=== PATIENT | female | born 1965 | race Caucasian/White ===

== ENCOUNTER → 2018-03-18 07:29 | Outpatient (CLI) | payer OTHER, SELFPAY ==
--- NOTE | 2018-03-18 07:30 | NM_ITS ---
SPECT MYOCARDIAL PERFUSION SCAN, REST AND STRESS: EXERCISE STRESS: [facility] REVIEW QGS EF AND WALL MOTION EVALUATION: QPS - PERFUSION EVALUATION: HISTORY: Chest pain, Fatigue, Abnormal EKG, HTN, Tobacco use PROCEDURE: Rest imaging performed after administration of10.26 millicuries Tc MIBI. Dose administered at7:45 a.m., with imaging thereafter. Stress imaging was then performed following9 minutes of exercise stress. The patient achieved a heart [id number] with projected heart rate of142 . Resting BP157/90 with stress 210/90. At maximum exercise stress,31.6 millicuries Tc MIBI administered at9:00 a.m. with trbaops44 minutes thereafter. FINDINGS: Perfusion Evaluation: The single slice spect images as well as the [facility] bull's-eye data summary were reviewed. Wall Motion and Ejection Fraction Evaluation: Gated SPECT review and analysis used to evaluate these features. There is a 73 % left ventricular ejection fraction. There seems to be good wall motion Uniform myocardial activity through stress and rest IMPRESSION: No scintigraphic evidence of exercise-induced myocardial ischemia. Normal ejection fraction normal wall motion
--- NOTE | 2018-03-18 08:00 | HMH.ITSHM ---
HCTZ LEVOTHYROXINE ESTRADIOL
== END ==
PROVIDERS: Family Provider Family Medicine; PCP Family Medicine; Visit Provider Physician Assistant
DX: R07.9 Chest pain, unspecified (principal)
CPT/HCPCS: 78452; 93017; A9502

== ENCOUNTER → 2018-05-09 07:59 | Outpatient (CLI) | payer OTHER, SELFPAY ==
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
== END ==
PROVIDERS: Family Provider Family Medicine; PCP Family Medicine; Visit Provider Family Medicine
DX: R91.1 Solitary pulmonary nodule (principal)
CPT/HCPCS: 71250

== ENCOUNTER → 2018-11-18 14:27 | Outpatient (CLI) | payer OTHER, SELFPAY ==
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
== END ==
PROVIDERS: PCP Family Medicine; Visit Provider Family Medicine
DX: Z09 Encounter for follow-up examination after completed treatment for conditions other than malignant neoplasm (principal)
CPT/HCPCS: 71250

== ENCOUNTER → 2020-02-09 12:01 | Outpatient (CLI) | payer OTHER, SELFPAY ==
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
--- NOTE | 2020-02-09 12:20 | CA_ITS ---
APPROVED REPORT EXAM: Comprehensive 2D, Doppler, and color-flow Echocardiogram Operations And Maintenance Supervisor: Rupali Liu RVT Ht: 5 ft 5 in Wt: 180lbs BSA: 1.89 BP: 136/65 mmHg Indications: Chest Pain, Shortness of Breath, Hypertension,Edema, Smoker 2D Dimensions LVOT 2.24 cm (M/F) 1.5-2.5 M-Mode Dimensions RVDd 3.31 cm (0.9-2.6) LVDd 3.75 cm (3.5-5.7) LVDs 2.58 cm (3.5-5.7) IVSd 0.97 cm (0.6-1.1) PWd 0.60 cm (0.6-1.1) EF (Teich) 59.80% FS 31.20% EDV (Teich) 60.00 mL ESV (Teich) 24.10 mL LV Diastology E/A Ratio 0.64 Mitral Valve MV A Velocity 70.00 (40-130 cm/s) Left Ventricle Left atrium is mildly enlarged, left ventricle is normal size, mild concentric left ventricular hypertrophy, hyperdynamic left ventricular systolic function, visually estimated ejection fraction over 65% with no regional wall motion abnormality, grade 1 diastolic dysfunction seen without tissue Doppler evidence of raise left atrial pressure. Right Ventricle Right atrium and right ventricular normal size and contractility. Aortic Valve Aortic valve is grossly normal, there is no aortic stenosis or aortic insufficiency. Mitral Valve Mitral valve is grossly normal, there is mild mitral regurgitation. Tricuspid Valve Tricuspid valve grossly normal, there is mild tricuspid regurgitation, tricuspid regurgitation jet velocity is inadequate for calculation of the right ventricular systolic pressure. Pulmonic Valve Pulmonic valve is poorly visualized. Great Vessels Aortic root is normal size. Pericardium No significant pericardial effusion noted. Conclusion 1. Mildly enlarged left atrium, normal left ventricular size, mild concentric left ventricular hypertrophy, hyperdynamic left ventricular systolic function, visually estimated ejection fraction over 65% with no regional wall motion abnormality, grade 1 diastolic dysfunction seen without tissue Doppler evidence of raise left atrial pressure. 2. Mild mitral and tricuspid regurgitation. 3. No significant pericardial effusion noted. Electronically signed by : Avery Herndon, 02/09/2020 17:46:27
--- NOTE | 2020-02-09 12:21 | CA_ITS ---
APPROVED REPORT Legal File Clerk: Rupali Liu RVT Laterality: Bilateral Study Quality: Good Indications: Dizziness and Vertigo Risk Factors Hypertension: Smoking Doppler Spectral Velocity Analysis ECA (R) 119.50/28.10 cm/s ECA (L) 71.30/19.70 cm/s dICA (R) 75.10/31.80 cm/s dICA (L) 52.80/24.80 cm/s Taylor (R) 76.10/33.40 cm/s Taylor (L) 70.00/29.90 cm/s pICA (R) 103.00/27.40 cm/s pICA (L) 96.10/32.50 cm/s dCCA (R) 90.10/25.20 cm/s dCCA (L) 78.30/24.20 cm/s pCCA (R) 106.90/28.50 cm/s pCCA (L) 111.40/31.20 cm/s Vert (R) 32.70/11.00 cm/s Vert (L) 43.80/12.80 cm/s ICA/CCA 1.14 ICA/CCA 1.23 Findings Study suggests less than 20% stenosis of the right internal cartoid artery. Study suggests less than 20% stenosis of the left internal cartoid artery. Antegrade flow seen bilateral vertebral arteries. Conclusion Study suggests less than 20% stenosis of the right internal cartoid artery. Study suggests less than 20% stenosis of the left internal cartoid artery. Antegrade flow seen bilateral vertebral arteries. Electronically signed by : Hieu Wakefield, 02/09/2020 19:12:13
[2020-02-09 13:36] LABS: Basophils # 0.1 K/mm3 (0-0.2); Basophils % 0.8 % (0.1-2.0); Eosinophils # 0.1 K/mm3 (0.0-0.4); Eosinophils % 2.1 % (0.1-12.0); Hematocrit 47.8 % (37.0-47.0); Hemoglobin 15.8 g/dL (12.2-16.2); Lymphocytes # 2.1 K/mm3 (0.7-4.5); Lymphocytes % 32.1 % (10-50); Mean Corpuscular Hemoglobin 30.1 pg (27.0-31.2); Mean Corpuscular Volume 91.1 fl (81-99); Mean Platelet Volume 7.4 fl (7.4-10.4); Monocytes # 0.3 K/mm3 (0.1-1.0); Monocytes % 4.9 % (1.7-9.3); Neutrophils # 3.8 K/mm3 (1.8-7.8); Neutrophils % 60.1 % (37.0-80.0); Platelet Count 302 K/mm3 (142-424); Red Blood Count 5.25 M/mm3 (4.20-5.40); Red Cell Distribution Width 12.6 % (11.5-17.5); White Blood Count 6.4 K/mm3 (4.8-10.8)
[2020-02-09 14:15] LABS: Hemoglobin A1C 5.4 % (4.0-6.0)
[2020-02-09 14:55] LABS: Alanine Aminotransferase 34 U/L (12-78); Albumin Level 4.1 g/dl (3.5-5.0); Albumin/Globulin Ratio 1.4 (1.1-1.8); Alkaline Phosphatase 96 U/L (38-126); Anion Gap 10.3 mEq/L (5-15); Aspartate Amino Transferase 28 U/L (14-36); Blood Urea Nitrogen 19 mg/dl (7-17); Calcium 9.4 mg/dl (8.4-10.2); Carbon Dioxide 32 mmol/L (22.0-30.0); Chloride 100 mmol/L (98-107); Chol/HDL Ratio 4.3 (1-3.5); Cholesterol 173 mg/dl (140-200); Estimated Glomerular Filt Rate 74 ml/min (>60); GFR (African American) 90 ML/MIN (>60); Glucose 103 mg/dl (74-100); HDL Cholesterol 40 mg/dl (40-60); Potassium 4.3 mmoL/L (3.5-5.1); Sodium 138 mmol/L (136-145); Total Protein,Serum 7.1 g/dl (6.3-8.2); Triglycerides 162 mg/dl (30-150); VLDL Cholesterol 32 mg/dL (0-40)
[2020-02-09 15:03] LABS: Bilirubin,Total 0.1 mg/dl (0.2-1.3)
[2020-02-09 15:07] LABS: Direct LDL Cholesterol 115.93 mg/dL (100-129)
[2020-02-09 15:09] LABS: NT Pro Brain Natriuretic Pep. 18.9 pg/mL (0-125)
[2020-02-09 15:12] LABS: Troponin I < 0.01 ng/ml (0.00-0.034)
[2020-02-09 15:16] LABS: Free Thyroxine Index 1.9 ug/dL (5.93-13.13); T4 (Thyroxine) 7.1 ug/dl (5.53-11.0); Triiodothryronine (T3) Uptake 27 % (23.5-40.5)
[2020-02-09 15:29] LABS: Thyroid Stimulating Hormone 6.51 uIU/mL (0.465-4.68)
[2020-02-10 08:29] LABS: Vitamin B12 463 pg/mL (232-1245); Vitamin D 25 Hydroxy 18.1 ng/mL (30.0-100.0)
[2020-03-06 12:20] LABS: Antinuclear Antibodies (ANA) NEGATIVE
== END ==
PROVIDERS: PCP Family Medicine; Visit Provider Nurse Practitioner
DX: R60.9 Edema, unspecified (principal); R06.02 Shortness of breath; R42 Dizziness and giddiness; E55.9 Vitamin D deficiency, unspecified
CPT/HCPCS: 36415; 71046; 80053; 80061; 82607; 82652; 82746; 83036; 83880; 84436; 84443; 84479; 84484; 85025; 86038; 86225; 86235; 93306; 93880

== ENCOUNTER → 2020-06-16 16:18 | Outpatient (CLI) | payer OTHER, SELFPAY ==
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
== END ==
PROVIDERS: PCP Family Medicine; Visit Provider Family Medicine
DX: M25.551 Pain in right hip (principal); R07.81 Pleurodynia; M25.561 Pain in right knee; V89.2XXA Person injured in unspecified motor-vehicle accident, traffic, initial encounter
CPT/HCPCS: 71101; 73030; 73562

== ENCOUNTER → 2020-08-05 08:30 | Outpatient (CLI) | payer OTHER, SELFPAY ==
--- NOTE | 2020-08-05 08:47 | XR_ITS ---
PROCEDURE: XR TIBIA FIBULA LT 2V CLINICAL INDICATION: LT TIBIA PAIN COMPARISON: No exams were available for comparison FINDINGS: No fracture or dislocation. No lytic or blastic change. There is normal mineralization. The joint spaces are well-preserved. No significant degenerative/arthritic changes. No erosive changes evident. Other findings:None. IMPRESSION: No acute findings. Dictated by: Yuri Bhatti MD 08/05/2020 16:39 Yuri Bhatti MD in [place] 08/05/2020 16:39
== END ==
PROVIDERS: PCP Family Medicine; Visit Provider Family Medicine
DX: M89.8X6 Other specified disorders of bone, lower leg (principal)
CPT/HCPCS: 73590

== ENCOUNTER 2020-11-19 12:52 | Emergency (ER) | payer OTHER, SELFPAY ==
[2020-11-19 13:20] VITALS: BP 131/91; PULSE 101; RESP 19; TEMP 36.6; O2SAT 99; BMI 29.0
[2020-11-19 13:37] VITALS: BP 131/91; PULSE 101; RESP 19; TEMP 36.6; O2SAT 99
--- NOTE | 2020-11-19 14:02 | HMH.EDUTC ---
[facility] [place] Clinical Impression: Viral syndrome, Exposure to COVID-19 virus Disposition: Home, Self-Care Condition on Discharge: Good Instructions: Preventing the Spread of Coronavirus Discharge Instructions Additional Instructions: Drink plenty of fluids. Take tylenol for pain or fever. Return if you begin to have difficulty breathing. Follow up with your regular doctor. GO TO THE ER FOR ANY WORSENING SYMPTOMS Prescriptions: Ondansetron [Zofran 4mg ODT] 4 mg PO Q8HP PRN #20 tab.rapdis PRN Reason: Nausea Transmission Status: Received by [facility] Referrals: Maryanne Bean MD [Primary Care Provider] - Time of Disposition: 14:05 Medical Decision Making - Medical Records Medical records reviewed: No: I reviewed the patient's medical records. - Hola Inquiry Pt receiving controlled substance: No Vital Signs: 11/19/20 13:20 11/19/20 13:37 Temperature 97.8 F 97.8 F Temperature Source Oral Pulse Rate 101 H Pulse Rate [Right Brachial] 101 H Respiratory Rate 19 19 Blood Pressure 131/91 H Blood Pressure [Right Arm] 131/91 H Blood Pressure Mean [Right Arm] 104 Blood Pressure Source [Right Arm] Automatic Cuff Blood Pressure Position [Right Arm] Sitting 02 Sat by Pulse Oximetry 99 Oxygen Delivery Method Room Air [facility] [place] - General Stated complaint: vaccine Sunday,symtoms since Sunday Time Seen by Provider: 11/19/20 14:04 Mode of Arrival: Ambulatory Source of Information: Patient Limitations: No Limitations Description of Symptoms (Recalled from Triage Doc. by RN): REQUESTING COVID TEST D/T EXPOSURE. REPORTS SHE HAD COVID VACCINE ON 11/16/20 AND BEGAN HAVING FEVER AND BODY ACHES ON 11/17/20 HEENT Symptoms (Recalled from RN notes): No Resp Symptoms (Recalled from RN notes): No Skin Symptoms (Recalled from RN notes): No MS Symptoms (Recalled from RN notes): No Functional Status (Recalled from RN notes): WNL - History of Present Illness Provider Complaint: She states that she has been having body aches for the past 2 days. She denies other symptoms. She did get the first dose the moderna covid vaccine 1 day before her symptoms started. - Related Data Home Medications Medication Instructions Recorded Confirmed levothyroxine 88 mcg tablet PO 11/14/17 Previous Rx's Medication Instructions Recorded Ondansetron [Zofran 4mg ODT] 4 mg PO Q8HP PRN #20 tab.rapdis 11/19/20 Allergies Allergy/AdvReac Type Severity Reaction Status Date / Time Penicillins Allergy Unknown unknown Verified 03/18/18 09:11 - Worker's Comp Is this a Worker's Comp case?: No [facility] History - Hepatitis A Screen Drug use history?: No High risk sexual behaviors?: No History of sexually transmitted infection?: No Currently employed?: No Childcare worker?: No Do you have indoor plumbing?: Yes Do you have electricity?: Yes Attestation statement:: This patient has been screened for Hepatitis A risk factors. I have reviewed the patient's past medical history: Yes Medical History: Reports:: Gastroesophageal Reflux Disease(GERD) Other Medical History: Reports: Thyroid Disease Laterality Cases: Left: Carpal Tunnel Release, Bilateral: Tonsillectomy Other Surgeries: Yes: Colonoscopy, Hernia Repair, Hysterectomy-Total, Other (Bladder surgery ) Amputation: No Fractures: No - Social History Smoking Status: Current every day smoker Tobacco Type: cigarettes Alcohol Intake: never Occupational Status: other Family Hx:: Cancer (Mother - lung cancer, PGM - breast CA), Coronary Artery Disease (Father - CABG at ~ 60 y.o. ) ROS Obtained: Yes All systems reviewed & no additional complaints - Constitutional Constitutional: Reports system reviewed and no additional complaints, except as docu - Eyes Eyes: Reports system reviewed and no additional complaints, except as docu - ENT Ears, Nose, Mouth, and Throat: Reports system reviewed and no additional complaints, except as docu - Ca
== END 2020-11-19 14:12 | disposition home or self-care (01) ==
PROVIDERS: Emergency Provider Nurse Practitioner Family; PCP Family Medicine
DX: Z20.822 Contact with and (suspected) exposure to COVID-19 (principal); B34.9 Viral infection, unspecified; K21.9 Gastro-esophageal reflux disease without esophagitis; E03.9 Hypothyroidism, unspecified; Z88.0 Allergy status to penicillin; Z79.899 Other long term (current) drug therapy
CPT/HCPCS: 99202; G0463; U0003

== ENCOUNTER → 2022-04-21 10:18 | Outpatient (CLI) | payer OTHER, SELFPAY ==
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
== END ==
PROVIDERS: PCP Nurse Practitioner Family; Visit Provider Nurse Practitioner Family
DX: M79.89 Other specified soft tissue disorders (principal)
CPT/HCPCS: 93971